=== PATIENT | female | born 1990 | race Caucasian/White ===

== ENCOUNTER → 2020-05-15 13:00 | Observation (INO) ==
[2020-05-15 12:02] LABS: Bilirubin,Urine Negative (Negative); Blood,Urine Negative (Negative); Clarity,Urine Clear (Clear); Color,Urine Yellow (Yellow); Glucose,Urine (UA) Normal (Normal); Ketones,Urine Negative (Negative); Leukocyte Esterase,Urine Negative (Negative); Nitrite,Urine Negative (Negative); Protein,Urine Trace mg/dL (Neg-Trace); Specific Gravity,Urine 1.023 (1.010-1.025); Urobilinogen,Urine Normal (Normal)
== END | disposition hospice, home (50) ==
LOC: 1NENULAB
PROVIDERS: ADMIT Obstetrics & Gynecology; ATTEND Obstetrics & Gynecology

== ENCOUNTER → 2020-05-31 18:24 | Observation (INO) ==
[2020-05-31 17:20] LABS: Bilirubin,Urine Negative (Negative); Blood,Urine Negative (Negative); Clarity,Urine Clear (Clear); Color,Urine Yellow (Yellow); Glucose,Urine (UA) Normal (Normal); Ketones,Urine Negative (Negative); Leukocyte Esterase,Urine Negative (Negative); Nitrite,Urine Negative (Negative); Protein,Urine Trace mg/dL (Neg-Trace); Specific Gravity,Urine > 1.030 (1.010-1.025); Urobilinogen,Urine Normal (Normal)
[2020-05-31 20:25] LABS: Gardnerella DNA Not Detected (Not Detect); Trichomonas DNA Not Detected (Not Detect)
[2020-05-31 20:26] LABS: Candida DNA Not Detected (Not Detect)
== END | disposition home or self-care (01) ==
LOC: 1NENULAB
PROVIDERS: ADMIT Student in an Organized Health Care Education/Training Program; ATTEND Student in an Organized Health Care Education/Training Program

== ENCOUNTER 2020-08-12 15:23 | Inpatient (IN) ==
[2020-08-12] MEDS ORDERED: Ringers Solution, Lactated 1,000 ML IVC ONE (15:40)
[2020-08-12] MEDS ORDERED: Famotidine 20 MG/2 ML VIAL IVP ONE (15:40)
[2020-08-12] MEDS ORDERED: Oxytocin 20 units/ LR 1000 mL 20 UNIT/1,000 ML BAG IVC ONE (15:40)
[2020-08-12] MEDS ORDERED: CeFAZolin 2,000 MG/50 ML BAG IVPB ONE (15:40)
[2020-08-12] MEDS ORDERED: Metoclopramide 10 MG/2 ML VIAL IVP ONE (15:40)
[2020-08-12] MEDS ORDERED: Clindamycin 900 MG/50 ML 900 MG/50 ML IV.SOLN IVPB ONE (15:51)
[2020-08-12] MEDS: Ringers Solution, Lactated 1,000 ML IVC SCH ×2 (16:08→17:26)
[2020-08-12 16:27] LABS: Basophils % 0.4 %; Eosinophils # 0.1 K/mcL (0.0-0.6); Eosinophils % 0.6 %; Hematocrit 37.7 % (35.3-44.9); Hemoglobin 12.1 g/dL (11.5-15.4); Immature Granulocytes % 0.5 % (0-4); Lymphocytes # 1.6 K/mcL (0.6-4.6); Lymphocytes % 14.6 %; Mean Corpuscular HGB Conc 32.1 g/dL (31.6-35.5); Mean Corpuscular Hemoglobin 28.5 pg (28.0-33.3); Mean Corpuscular Volume 88.9 fL (83.0-100.0); Mean Platelet Volume 12.3 fL (9.4-12.4); Monocytes # 0.6 K/mcL (0.0-1.3); Monocytes % 5.3 %; Neutrophils # 8.6 K/mcL (1.6-8.9); Platelet Count 147 K/mcL (140-400); Red Blood Count 4.24 M/mcL (3.82-4.97); Red Cell Distribution Width 13.2 % (11.5-14.5); Segmented Neutrophils % 78.6 %
[2020-08-12 16:28] LABS: Amphetamine Screen,Urine Negative ng/mL (Cutoff=1000); Barbiturate Screen,Urine Negative ng/mL (Cutoff=200); Benzodiazepines Screen,Urine Negative ng/mL (Cutoff=200); Cannabinoid Screen,Urine Negative ng/mL (Cutoff = 50); Cocaine Screen,Urine Negative ng/mL (Cutoff= 300); Opiate Screen,Urine Negative ng/mL (Cutoff=300); Phencyclidine Screen,Urine Negative ng/mL (Cutoff=25)
[2020-08-12] MEDS ORDERED: *HR* HYDROmorphone (PF) 1 MG/ML SYRINGE IVP PRN (17:35)
[2020-08-12] MEDS ORDERED: Promethazine 6.25 MG in Water for inj. (sterile) 20 ML IVPB PRN (17:35)
[2020-08-12] MEDS ORDERED: EPHEDrine 50 MG/ML VIAL ONE (19:05)
[2020-08-12] MEDS ORDERED: *HR* Morphine Sulfate/PF 10 MG/10 ML AMPUL ONE (19:05)
[2020-08-12] MEDS ORDERED: *HR* FentaNYL (PF) 100 MCG/2 ML VIAL ONE (19:06)
[2020-08-12] MEDS ORDERED: Ringers Solution, Lactated 1,000 ML ONE (19:09)
[2020-08-12] MEDS ORDERED: Dexamethasone 4 MG/ML VIAL ONE (19:10)
[2020-08-12] MEDS ORDERED: Ondansetron 4 MG/2 ML VIAL ONE (19:10)
[2020-08-12] MEDS ORDERED: Ketorolac 30 MG/ML VIAL ONE (19:10)
[2020-08-12] MEDS ORDERED: *HR* Midazolam HCl 2 MG/2 ML VIAL ONE (19:11)
[2020-08-12] MEDS ORDERED: *HR* Oxytocin 10 UNIT/ML VIAL IM ONE (20:03)
[2020-08-12] MEDS ORDERED: Sennosides 8.6 MG TABLET PO PRN (23:09)
[2020-08-12] MEDS ORDERED: Simethicone 80 MG TAB.CHEW PO PRN (23:09)
[2020-08-12] MEDS ORDERED: Ringers Solution, Lactated 1,000 ML IVC SCH (23:09)
[2020-08-12] MEDS ORDERED: Ibuprofen 600 MG TABLET PO PRN (23:09)
[2020-08-12] MEDS ORDERED: Metoclopramide 10 MG/2 ML VIAL IVP PRN (23:09)
[2020-08-12] MEDS ORDERED: Ondansetron 4 MG/2 ML VIAL IVP PRN (23:09)
[2020-08-12] MEDS ORDERED: *HR* OxyCODONE/APAP 5/325 TABLET PO PRN (23:09)
[2020-08-12] MEDS ORDERED: Oxytocin 20 units/ LR 1000 mL 20 UNIT/1,000 ML BAG IVC SCH (23:09)
[2020-08-13] MEDS: cephALEXin 500 MG CAPSULE PO SCH ×4 (00:18→20:06)
[2020-08-13] MEDS: metroNIDAZOLE 500 MG TABLET PO SCH ×4 (00:18→20:05)
[2020-08-13 06:02] LABS: Basophils % 0.1 %; Hematocrit 32.3 % (35.3-44.9); Hemoglobin 10.8 g/dL (11.5-15.4); Immature Granulocytes % 0.7 % (0-4); Lymphocytes # 0.7 K/mcL (0.6-4.6); Lymphocytes % 5.4 %; Mean Corpuscular HGB Conc 33.4 g/dL (31.6-35.5); Mean Corpuscular Hemoglobin 28.9 pg (28.0-33.3); Mean Corpuscular Volume 86.4 fL (83.0-100.0); Mean Platelet Volume 11.9 fL (9.4-12.4); Monocytes # 0.7 K/mcL (0.0-1.3); Monocytes % 4.9 %; Neutrophils # 12.1 K/mcL (1.6-8.9); Platelet Count 135 K/mcL (140-400); Red Blood Count 3.74 M/mcL (3.82-4.97); Red Cell Distribution Width 12.5 % (11.5-14.5); Segmented Neutrophils % 88.9 %; White Blood Count 13.6 K/mcL (4.3-11.1)
[2020-08-13] MEDS: Prenatal Vit/FA 1 EACH TABLET PO SCH (08:39)
[2020-08-13] MEDS: Ibuprofen 600 MG TABLET PO SCH ×2 (14:37→20:05)
[2020-08-13] MEDS ORDERED: Lanolin 7 G OINT...G. TP PRN (16:40)
[2020-08-14] MEDS: Ibuprofen 600 MG TABLET PO SCH ×2 (02:54→08:02)
[2020-08-14 07:56] VITALS: BP 113/77
[2020-08-14] MEDS: metroNIDAZOLE 500 MG TABLET PO SCH (08:02)
[2020-08-14] MEDS: Prenatal Vit/FA 1 EACH TABLET PO SCH (08:02)
[2020-08-14] MEDS: cephALEXin 500 MG CAPSULE PO SCH (08:02)
== END 2020-08-14 12:42 | disposition home or self-care (01) | DRG 540 ==
LOC: 1NENULAB 15:23 → 1NENUOBS 23:10
PROVIDERS: ADMIT Obstetrics & Gynecology; ATTEND Obstetrics & Gynecology

== ENCOUNTER → 2022-01-20 16:10 | Observation (INO) ==
[2022-01-20 13:38] LABS: Bacteria,Urine Few per hpf (None-Few); Bilirubin,Urine Negative (Negative); Blood,Urine Negative (Negative); Clarity,Urine Turbid (Clear); Color,Urine Light-Yellow (Yellow); Glucose,Urine (UA) Normal (Normal); Ketones,Urine Negative (Negative); Leukocyte Esterase,Urine Negative (Negative); Mucus,Urine Few per lpf (None-Few); Nitrite,Urine Negative (Negative); Protein,Urine 30 mg/dL (Neg-Trace); Specific Gravity,Urine 1.029 (1.010-1.025); Sperm,Urine Present per hpf (None Seen); Squamous Epithelial Cell,Urine Few per hpf (None-Few); Urobilinogen,Urine Normal (Normal); WBC,Urine 0-3 per hpf (0-3)
[2022-01-20 14:55] LABS: Candida DNA Not Detected (Not Detect); Gardnerella DNA Not Detected (Not Detect); Trichomonas DNA Not Detected (Not Detect)
== END | disposition home or self-care (01) ==
LOC: 1NENULAB
PROVIDERS: ADMIT Registered Nurse; ATTEND Registered Nurse

== ENCOUNTER 2022-05-04 05:30 | Inpatient (IN) ==
[2022-05-04] MEDS ORDERED: Famotidine 20 MG/2 ML VIAL IVP ONE (06:05)
[2022-05-04] MEDS ORDERED: Ringers Solution, Lactated 1,000 ML IVC ONE (06:05)
[2022-05-04] MEDS ORDERED: Metoclopramide 10 MG/2 ML VIAL IVP ONE (06:05)
[2022-05-04] MEDS ORDERED: Oxytocin 30 UNIT/503 ML BAG IVC SCH ×2 (06:15→11:50)
[2022-05-04] MEDS ORDERED: Ringers Solution, Lactated 1,000 ML IVC SCH (06:15)
[2022-05-04] MEDS ORDERED: *HR* FentaNYL (PF) 100 MCG/2 ML VIAL ONE (06:43)
[2022-05-04] MEDS ORDERED: EPHEDrine sulfate 50 MG/10 ML VIAL IVP ONE (06:43)
[2022-05-04] MEDS ORDERED: *HR* Midazolam HCl 2 MG/2 ML VIAL ONE (06:43)
[2022-05-04] MEDS ORDERED: *HR* HYDROMORPHONE 2 MG/ML VIAL ONE (06:48)
[2022-05-04] MEDS ORDERED: Ondansetron 4 MG/2 ML VIAL ONE (06:49)
[2022-05-04] MEDS ORDERED: Acetaminophen IV 1,000 MG/100 ML BAG IVPB PRN (06:51)
[2022-05-04] MEDS ORDERED: *HR* Meperidine 25 MG/ML SYRINGE IVP PRN (06:51)
[2022-05-04] MEDS ORDERED: Promethazine 6.25 MG in Water for inj. (sterile) 20 ML IVPB PRN (06:51)
[2022-05-04] MEDS ORDERED: *HR* HYDROmorphone PF 0.5 MG/0.5 ML SYRINGE IVP PRN (06:51)
[2022-05-04] MEDS ORDERED: *HR* Labetalol 20 MG/4 ML SYRINGE IVP PRN (06:51)
[2022-05-04] MEDS ORDERED: Ketorolac 30 MG/ML VIAL ONE (06:51)
[2022-05-04] MEDS ORDERED: Acetaminophen IV 1,000 MG/100 ML BAG IVPB ONE (06:51)
[2022-05-04 07:10] LABS: Basophils % 0.3 %; Eosinophils # 0.1 K/mcL (0.0-0.6); Eosinophils % 1.2 %; Hematocrit 36.3 % (35.3-44.9); Immature Granulocytes % 0.8 % (0-4); Lymphocytes # 1.8 K/mcL (0.6-4.6); Lymphocytes % 19.3 %; Mean Corpuscular HGB Conc 33.1 g/dL (31.6-35.5); Mean Corpuscular Hemoglobin 29.8 pg (28.0-33.3); Mean Corpuscular Volume 90.1 fL (83.0-100.0); Mean Platelet Volume 12.2 fL (9.4-12.4); Monocytes # 0.5 K/mcL (0.0-1.3); Monocytes % 5.7 %; Neutrophils # 6.7 K/mcL (1.6-8.9); Platelet Count 118 K/mcL (140-400); Red Blood Count 4.03 M/mcL (3.82-4.97); Segmented Neutrophils % 72.7 %; White Blood Count 9.1 K/mcL (4.3-11.1)
[2022-05-04] MEDS ORDERED: Clindamycin 900 MG/50 ML 900 MG/50 ML IV.SOLN IVPB ONE (07:38)
[2022-05-04] MEDS ORDERED: Clindamycin 900 MG/50 ML 900 MG/50 ML IV.SOLN IVPB SCH (08:00)
[2022-05-04 09:12] LABS: Amphetamine Screen,Urine Negative ng/mL (Cutoff=1000); Barbiturate Screen,Urine Negative ng/mL (Cutoff=200); Benzodiazepines Screen,Urine Negative ng/mL (Cutoff=200); Cannabinoid Screen,Urine Negative ng/mL (Cutoff = 50); Cocaine Screen,Urine Negative ng/mL (Cutoff= 300); Opiate Screen,Urine Negative ng/mL (Cutoff=300); Phencyclidine Screen,Urine Negative ng/mL (Cutoff=25)
[2022-05-04] MEDS ORDERED: *HR* OxyCODONE Immed Rel 5 MG TABLET PO PRN (11:50)
[2022-05-04] MEDS ORDERED: NON-FORMULARY MEDICATION 1 EACH EACH (Prenatal Vit/Fa [Prenatal Vit/Fa] 1 EACH Tablet) PO SCH (11:50)
[2022-05-04] MEDS ORDERED: Ondansetron 4 MG/2 ML VIAL IVP PRN (11:50)
[2022-05-04] MEDS ORDERED: Metoclopramide 10 MG/2 ML VIAL IVP PRN (11:50)
[2022-05-04] MEDS: Acetaminophen 325 MG TABLET PO SCH ×3 (13:28→21:33)
[2022-05-04] MEDS: Ibuprofen 600 MG TABLET PO SCH ×3 (13:28→21:33)
[2022-05-04] MEDS: Clindamycin 900 MG/50 ML 900 MG/50 ML IV.SOLN IVPB SCH (18:39)
[2022-05-04] MEDS: Prenatal Vit/FA 1 EACH TABLET PO SCH (19:42)
[2022-05-04] MEDS: metroNIDAZOLE 500 MG TABLET PO SCH ×2 (19:42→21:33)
[2022-05-04 20:46] VITALS: O2SAT 97
[2022-05-05] MEDS: Clindamycin 900 MG/50 ML 900 MG/50 ML IV.SOLN IVPB SCH ×2 (01:04→09:04)
[2022-05-05] MEDS: Ibuprofen 600 MG TABLET PO SCH ×2 (05:44→11:36)
[2022-05-05] MEDS: Acetaminophen 325 MG TABLET PO SCH ×2 (05:44→11:36)
[2022-05-05] MEDS: Simethicone 80 MG TAB.CHEW PO PRN ×2 (06:10→07:52)
[2022-05-05 06:23] VITALS: BP 101/63; PULSE 66; TEMP 97.9
[2022-05-05 06:58] LABS: Basophils % 0.2 %; Eosinophils # 0.1 K/mcL (0.0-0.6); Eosinophils % 0.9 %; Hematocrit 30.9 % (35.3-44.9); Immature Granulocytes % 0.5 % (0-4); Lymphocytes # 1.5 K/mcL (0.6-4.6); Lymphocytes % 13.1 %; Mean Corpuscular HGB Conc 32.7 g/dL (31.6-35.5); Mean Corpuscular Hemoglobin 29.5 pg (28.0-33.3); Mean Corpuscular Volume 90.4 fL (83.0-100.0); Mean Platelet Volume 12.1 fL (9.4-12.4); Monocytes # 0.8 K/mcL (0.0-1.3); Monocytes % 6.7 %; Neutrophils # 9.2 K/mcL (1.6-8.9); Platelet Count 105 K/mcL (140-400); Red Blood Count 3.42 M/mcL (3.82-4.97); Red Cell Distribution Width 13.9 % (11.5-14.5); Segmented Neutrophils % 78.6 %; White Blood Count 11.7 K/mcL (4.3-11.1)
[2022-05-05 07:01] LABS: Hemoglobin 10.1 g/dL (11.5-15.4)
[2022-05-05] MEDS: metroNIDAZOLE 500 MG TABLET PO SCH (07:52)
[2022-05-05] MEDS: Prenatal Vit/FA 1 EACH TABLET PO SCH (07:52)
== END 2022-05-05 15:13 | disposition home or self-care (01) | DRG 539 ==
LOC: 1NENULAB 05:37 → 1NENUOBS 11:40
PROVIDERS: ADMIT Obstetrics & Gynecology; ATTEND Obstetrics & Gynecology